=== PATIENT | male | born 1970 | race Two or more races ===

== ENCOUNTER 2022-01-06 01:12 | Emergency (ER) | payer OTHER ==
[~2022-01-06] VITALS: Ht 167.6 cm; Wt 88.5 kg
[2022-01-06] MEDS ORDERED: KETOROLAC TROMETH 60MG/2ML VIAL IM ONE (02:30)
[2022-01-06 04:48] VITALS: BP 133/86
== END 2022-01-06 04:56 | disposition home or self-care (01) ==
LOC: ER 01:12
DX: M75.32 Calcific tendinitis of left shoulder (principal)
CPT/HCPCS: 73030; 96372; 99283; J1885